=== PATIENT | female | born 1995 | race Two or more races ===

== ENCOUNTER 2024-01-26 00:17 | Emergency (ER) | payer OTHER ==
[~2024-01-26] VITALS: Ht 165.1 cm; Wt 54.4 kg
[2024-01-26] MEDS ORDERED: CEFTRIAXONE SODIUM 1,000 MG VIAL IM STA (02:21)
[2024-01-26] MEDS ORDERED: KETOROLAC TROMETHAMINE 60 MG VIAL IM STA (02:21)
[2024-01-26] MEDS ORDERED: LIDOCAINE HCL 4% Topic SOLUTION TOP STA (02:22)
== END 2024-01-26 02:45 | disposition home or self-care (01) ==
LOC: ER 00:19
DX: J06.9 Acute upper respiratory infection, unspecified (principal); H92.02 Otalgia, left ear